=== PATIENT | male | born 1955 | race Two or more races ===

== ENCOUNTER 2017-04-20 13:10 | Emergency (ER) | payer SELFPAY ==
[2017-04-20 13:37] LABS: ADD MAN DIFF? NO
[2017-04-20 13:42] LABS: BASO % 1 % (0-3); EOS # 0.1 x10^3/uL (0.0-0.7); EOS % 2 % (0-3); HEMATOCRIT 43.3 % (39.0-53.0); HEMOGLOBIN 14.5 g/dL (13.0-17.5); LYMPH # 0.8 x10^3/uL (1.0-4.8); LYMPH % 13 % (24-48); MEAN CORPUSCULAR HEMOGLOBIN 30 pg (25-35); MEAN CORPUSCULAR HGB CONC 34 g/dL (31-37); MEAN CORPUSCULAR VOLUME 91 fL (79-100); MONO # 0.4 x10^3/uL (0.0-1.1); MONO % 6 % (0-9); NEUT # 4.8 x10^3uL (1.8-7.7); NEUT % 78 % (31-73); PLATELET COUNT 246 x10^3/uL (140-400); RED BLOOD COUNT 4.78 x10^6/uL (4.30-5.70); RED CELL DISTRIBUTION WIDTH 13.6 % (11.5-14.5); WHITE BLOOD COUNT 6.1 x10^3/uL (4.0-11.0)
[2017-04-20] MEDS: KETOROLAC 30 MG/ML INJ. IV ×2 (14:04)
[2017-04-20 14:12] LABS: ANION GAP 7 (6-14); BLOOD UREA NITROGEN 11 mg/dL (8-26); BUN/CREATININE RATIO 14 (6-20); CALCIUM 9.2 mg/dL (8.5-10.1); CARBON DIOXIDE 29 mmol/L (21-32); CHLORIDE 104 mmol/L (98-107); CREATININE 0.8 mg/dL (0.7-1.3); GFR 98.6; GLUCOSE 128 mg/dL (70-99); POTASSIUM 3.8 mmol/L (3.5-5.1); SODIUM 140 mmol/L (136-145)
[2017-04-20 14:17] LABS: ALBUMIN 4.3 g/dL (3.4-5.0); ALBUMIN/GLOBULIN RATIO 1.2 (1.0-1.7); ALK PHOS 91 U/L (46-116); ALT (SGPT) 17 U/L (16-63); AST (SGOT) 19 U/L (15-37); TOTAL BILIRUBIN 0.6 mg/dL (0.2-1.0)
[2017-04-20 14:19] LABS: TROPONINI < 0.017 ng/mL (0.000-0.055)
[2017-04-20 14:26] LABS: NT-PRO BNP 40 pg/mL (0-124)
[2017-04-20 14:26] LABS: CKMB MASS 0.6 ng/mL (0.0-3.6); CREATINE KINASE 59 U/L (39-308)
== END 2017-04-20 16:05 | disposition home or self-care (01) ==
LOC: ER 13:10
DX: R07.89 Other chest pain (principal); R05 Cough; R50.9 Fever, unspecified; F32.9 Major depressive disorder, single episode, unspecified; Z79.891 Long term (current) use of opiate analgesic; Z79.899 Other long term (current) drug therapy
CPT/HCPCS: 36415; 71045; 80053; 82553; 83880; 84484; 85025; 93005; 96374; 99285-25; J1885

== ENCOUNTER 2017-09-29 09:48 | Emergency (ER) | payer MEDICARE ==
[2017-09-29] MEDS: IV NORMAL SALINE 1000ML BAG 1,000 ML IV (10:54)
[2017-09-29] MEDS: KETOROLAC 15 MG/ML VIAL. IV (10:54)
[2017-09-29] MEDS: ONDANSETRON PF 4 MG/2 ML VIAL. IV (10:54)
[2017-09-29] MEDS: FAMOTIDINE 20 MG/2 ML VIAL IVP (10:54)
[2017-09-29 10:56] LABS: ADD MAN DIFF? NO
[2017-09-29 11:00] LABS: BASO # 0.1 x10^3/uL (0.0-0.2); BASO % 3 % (0-3); EOS # 0.4 x10^3/uL (0.0-0.7); EOS % 9 % (0-3); HEMATOCRIT 45.8 % (39.0-53.0); HEMOGLOBIN 15.9 g/dL (13.0-17.5); LYMPH # 0.6 x10^3/uL (1.0-4.8); LYMPH % 14 % (24-48); MEAN CORPUSCULAR HEMOGLOBIN 31 pg (25-35); MEAN CORPUSCULAR HGB CONC 35 g/dL (31-37); MEAN CORPUSCULAR VOLUME 90 fL (79-100); MONO # 0.3 x10^3/uL (0.0-1.1); MONO % 8 % (0-9); NEUT # 2.8 x10^3uL (1.8-7.7); NEUT % 67 % (31-73); PLATELET COUNT 293 x10^3/uL (140-400); RED CELL DISTRIBUTION WIDTH 14.6 % (11.5-14.5); WHITE BLOOD COUNT 4.2 x10^3/uL (4.0-11.0)
[2017-09-29 11:09] LABS: ANION GAP 9 (6-14); BLOOD UREA NITROGEN 17 mg/dL (8-26); BUN/CREATININE RATIO 17 (6-20); CALCIUM 9.2 mg/dL (8.5-10.1); CARBON DIOXIDE 30 mmol/L (21-32); CHLORIDE 100 mmol/L (98-107); GFR 76.2; GLUCOSE 101 mg/dL (70-99); POTASSIUM 4.3 mmol/L (3.5-5.1); SODIUM 139 mmol/L (136-145)
[2017-09-29 11:09] LABS: ETHANOL < 10 mg/dL (0-10)
[2017-09-29 11:14] LABS: ALBUMIN 4.3 g/dL (3.4-5.0); ALK PHOS 110 U/L (46-116); ALT (SGPT) 20 U/L (16-63); AST (SGOT) 15 U/L (15-37); LIPASE 133 U/L (73-393); TOTAL BILIRUBIN 1.2 mg/dL (0.2-1.0); TOTAL PROTEIN 8.6 g/dL (6.4-8.2)
[2017-09-29 11:17] LABS: TROPONINI < 0.017 ng/mL (0.000-0.055)
[2017-09-29 11:21] LABS: CKMB MASS 0.6 ng/mL (0.0-3.6); CREATINE KINASE 48 U/L (39-308)
[2017-09-29 12:58] LABS: BILIRUBIN,URINE NEGATIVE (NEG); CLARITY,URINE CLOUDY; COLOR,URINE YELLOW; GLUCOSE,URINE NEGATIVE (NEG); NITRITE,URINE NEGATIVE (NEG); PROTEIN,URINE NEGATIVE (NEG-TRACE)
[2017-09-29 13:04] LABS: AMPHETAMINE/METHAMPHETAMINE NEG (NEG); BARBITURATES NEG (NEG); BENZODIAZEPINES NEG (NEG); CANNABINOIDS NEG (NEG); COCAINE NEG (NEG); ETHANOL, URINE NEG (NEG); METHADONE NEG (NEG); OPIATES POS (NEG); PHENCYCLIDINE NEG (NEG)
[2017-09-29 13:06] LABS: BACTERIA,URINE FEW /HPF (0-FEW); RBC,URINE OCC /HPF (0-2); WBC,URINE OCC /HPF (0-4)
[2017-09-29] MEDS: LORazepam 1 MG TABLET PO (14:49)
== END 2017-09-29 15:20 | disposition home or self-care (01) ==
LOC: ER 09:48
DX: F11.23 Opioid dependence with withdrawal (principal); G89.29 Other chronic pain; M54.89 Other dorsalgia; R19.7 Diarrhea, unspecified; R11.0 Nausea
CPT/HCPCS: 36415; 80053; 80307; 81001; 82553; 83690; 84484; 85025; 93005; 96361; 96374; 96375; 99285-25; G0480; J1885; J2405; J7030; S0028